=== PATIENT | male | born 1960 | race Hispanic/Latino ===

== ENCOUNTER 2020-05-07 19:02 | Emergency (ER) | payer OTHER ==
[2020-05-07 20:15] LABS: BASOPHILS % (AUTO) 0.3 % (0.0-5.0); EOSINOPHILS % (AUTO) 0.9 % (0.0-8.0); HEMATOCRIT 43.7 % (42-54); LYMPHOCYTES % (AUTO) 15.4 % (21.0-51.0); MEAN CORPUSCULAR HEMOGLOBIN 28.5 pg (27.0-33.0); MEAN CORPUSCULAR HGB CONC 33.9 g/dL (32.0-36.0); MEAN CORPUSCULAR VOLUME 84.2 fL (79-99); MONOCYTES % (AUTO) 7.3 % (3.0-13.0); NEUTROPHILS % (AUTO) 75.6 % (40.0-77.0); PLATELET COUNT (AUTO) 236 K/uL (130-400); RED BLOOD CELL COUNT(AUTO) 5.19 MIL/uL (4.50-6.20); RED CELL DISTRIBUTION WIDTH 12.9 % (11.0-15.5); WHITE BLOOD COUNT (AUTO) 8.8 K/uL (4.8-10.8)
[2020-05-07 20:22] LABS: PROTHROMBIN TIME 10.9 SEC (9.6-11.6)
[2020-05-07 20:23] LABS: PARTIAL THROMBOPLASTIN TIME 24.7 SEC (26.3-35.5)
[2020-05-07 20:25] LABS: ALBUMIN 4.2 g/dL (3.5-5.0); BILIRUBIN,TOTAL 0.3 mg/dL (0.2-1.0); TOTAL PROTEIN, SERUM 7.7 g/dL (6.0-8.3)
[2020-05-07 21:26] LABS: APPEARANCE,URINE Clear (CLEAR); BILIRUBIN,URINE Negative (NEGATIVE); COLOR,URINE Yellow (YELLOW); GLUCOSE, URINE (UA) Negative (NEGATIVE); KETONES,URINE Negative (NEGATIVE); LEUKOCYTE ESTERASE ,URINE Negative (NEGATIVE); NITRATE,URINE Negative (NEGATIVE); OCCULT BLOOD,URINE Negative (NEGATIVE); PH,URINE 5.5 (5.0-8.0); PROTEIN,URINE Negative (NEGATIVE); UROBILINOGEN,URINE 0.2 mg/dL (0.2-1.0)
== END 2020-05-07 22:25 | disposition home or self-care (01) ==
LOC: EDH 19:02
DX: R55 Syncope and collapse (principal); R42 Dizziness and giddiness; R03.0 Elevated blood-pressure reading, without diagnosis of hypertension; R26.9 Unspecified abnormalities of gait and mobility
CPT/HCPCS: 36415; 80053; 81003; 82550; 83605; 85025; 85610; 85730; 93005

== ENCOUNTER 2020-11-18 11:32 | Inpatient (IN) | payer OTHER ==
[~2020-11-18] VITALS: Ht 175.3 cm; Wt 99.5 kg
[2020-11-18] VITALS (7 sets, daily range): BP systolic 129–160; BP diastolic 76–95
[2020-11-18 12:35] LABS: HEMATOCRIT 44.1 % (42-54); MEAN CORPUSCULAR HEMOGLOBIN 28.3 pg (27.0-33.0); MEAN CORPUSCULAR HGB CONC 33.3 g/dL (32.0-36.0); RED BLOOD CELL COUNT(AUTO) 5.19 MIL/uL (4.50-6.20); RED CELL DISTRIBUTION WIDTH 12.8 % (11.0-15.5)
[2020-11-18 13:09] LABS: CREATININE 1.1 mg/dL (0.5-1.5); POTASSIUM 3.8 mmol/L (3.5-5.1)
[2020-11-18] MEDS ORDERED: ASPIRIN 325MG TAB PO ONE (13:30)
[2020-11-18] MEDS ORDERED: HEPARIN 5,000 UNIT VIAL IV ONE (13:30)
[2020-11-18] MEDS ORDERED: NITROGLYCERIN 1GM OINT 1 INCH/1GM TD ONE ×2 (13:30→14:55)
[2020-11-18] MEDS ORDERED: MORPHINE 4 MG SYG IV PRN (14:30)
[2020-11-18] MEDS ORDERED: ONDANSETRON 4MG INJ IV PRN (14:30)
[2020-11-18] MEDS ORDERED: MORPHINE 2 MG SYG IV PRN (14:30)
[2020-11-18] MEDS ORDERED: GUAIFENESIN-DM 200/20 MG 10 ML PO PRN (14:30)
[2020-11-18] MEDS ORDERED: DIPHENHYDRAMINE HCL 25 MG CAPSULE PO PRN (14:30)
[2020-11-18] MEDS ORDERED: MAG/ALUM/SIMETH 30 ML UDCUP PO PRN (14:30)
[2020-11-18] MEDS ORDERED: HYDRALAZINE 20MG/ML VIAL IV PRN (14:30)
[2020-11-18] MEDS ORDERED: ACETAMINOPHEN 325 MG TAB PO PRN (14:30)
[2020-11-18] MEDS ORDERED: LACTULOSE 20 GM/30 ML UDCUP PO PRN (14:30)
[2020-11-18] MEDS ORDERED: NITROGLYCERIN 0.4 MG SL TAB SL PRN (14:30)
[2020-11-18] MEDS ORDERED: HEPARIN 5,000 UNIT VIAL ONE (14:37)
[2020-11-18] MEDS: HEPARIN 25,000 UNITS/250ML D5W 250 ML IV PRN (14:50)
[2020-11-18] MEDS ORDERED: ASPIRIN 81MG CHEW TAB ONE (14:52)
[2020-11-18 16:08] LABS: CHOLESTEROL 185 mg/dL (<200); HDL CHOLESTEROL 28 mg/dL (29-71); LDL DIRECT 131 mg/dL (0-99); TRIGLYCERIDES 191 mg/dL (30-200)
[2020-11-18] MEDS ORDERED: CLOPIDOGREL 300MG TAB PO SCH ×3 (17:00→21:30)
[2020-11-18 17:20] LABS: AMPHET/METH SCREEN,URINE NEGATIVE (NEGATIVE); BARBITURATE SCREEN, URINE NEGATIVE (NEGATIVE); BENZODIAZEPINES SCREEN,URINE NEGATIVE (NEGATIVE); CANNABINOID SCREEN,URINE NEGATIVE (NEGATIVE); COCAINE SCREEN,URINE NEGATIVE (NEGATIVE); OPIATE SCREEN,URINE NEGATIVE (NEGATIVE); PHENCYCLIDINE SCREEN,URINE NEGATIVE (NEGATIVE)
[2020-11-18 19:24] LABS: HEMOGLOBIN A1C 5.9 % (4.0-6.0)
[2020-11-18 20:14] LABS: INR 1.04 (0.85-1.15); PROTHROMBIN TIME 11.3 SEC (9.6-11.6)
[2020-11-18 20:16] LABS: PARTIAL THROMBOPLASTIN TIME 44.8 SEC (26.3-35.5)
[2020-11-18] MEDS: FAMOTIDINE 20MG VIAL IV SCH ×2 (21:00→21:32)
[2020-11-18] MEDS ORDERED: METOPROLOL TARTRATE 25 MG TAB PO SCH (21:00)
[2020-11-18] MEDS: ATORVASTATIN 40 MG TABLET PO SCH (21:32)
[2020-11-19] VITALS (11 sets, daily range): BP systolic 64–153; BP diastolic 62–126
[2020-11-19 02:51] LABS: INR 1.04 (0.85-1.15); PROTHROMBIN TIME 11.3 SEC (9.6-11.6)
[2020-11-19 02:52] LABS: CHOLESTEROL 193 mg/dL (<200); CREATINE KINASE, TOTAL 171 U/L (21-232); HDL CHOLESTEROL 30 mg/dL (29-71); LDL DIRECT 133 mg/dL (0-99); MYOGLOBIN 44 ng/mL (10-92); TRIGLYCERIDES 198 mg/dL (30-200)
[2020-11-19 02:53] LABS: PARTIAL THROMBOPLASTIN TIME 51.5 SEC (26.3-35.5)
[2020-11-19] MEDS: HEPARIN 25,000 UNITS/250ML D5W 250 ML IV PRN (05:38)
[2020-11-19 07:40] LABS: BASOPHILS % (AUTO) 0.6 % (0.0-5.0); EOSINOPHILS % (AUTO) 1.7 % (0.0-8.0); HEMATOCRIT 45.3 % (42-54); LYMPHOCYTES % (AUTO) 25.5 % (21.0-51.0); MEAN CORPUSCULAR HGB CONC 33.1 g/dL (32.0-36.0); MEAN CORPUSCULAR VOLUME 84.5 fL (79-99); MONOCYTES % (AUTO) 8.7 % (3.0-13.0); NEUTROPHILS % (AUTO) 63.3 % (40.0-77.0); PLATELET COUNT (AUTO) 215 K/uL (130-400); RED BLOOD CELL COUNT(AUTO) 5.36 MIL/uL (4.50-6.20); RED CELL DISTRIBUTION WIDTH 12.8 % (11.0-15.5); WHITE BLOOD COUNT (AUTO) 6.4 K/uL (4.8-10.8)
[2020-11-19 07:57] LABS: CREATININE 0.9 mg/dL (0.5-1.5); POTASSIUM 3.8 mmol/L (3.5-5.1)
[2020-11-19] MEDS: CLOPIDOGREL 75MG TAB PO SCH (09:00)
[2020-11-19] MEDS: FAMOTIDINE 20MG VIAL IV SCH ×2 (09:00→21:47)
[2020-11-19] MEDS: METOPROLOL TARTRATE 25 MG TAB PO SCH ×2 (10:01→21:47)
[2020-11-19] MEDS ORDERED: HEPARIN 10,000 UNIT/10ML (1,000 UNIT/ML) VIAL ONE (12:05)
[2020-11-19] MEDS ORDERED: MIDAZOLAM HCL 1 MG/ML 2ML VIAL ONE (12:05)
[2020-11-19] MEDS ORDERED: IOHEXOL 350 MG/ML 100ML INFUS..BTL IV ONE (12:05)
[2020-11-19] MEDS ORDERED: NITROGLYCERIN 2 MG VIAL IV ONE (12:05)
[2020-11-19] MEDS ORDERED: FENTANYL CITRATE PF 50 MCG/1 ML 2ML VIAL ONE (12:06)
[2020-11-19] MEDS ORDERED: LIDOCAINE HCL 400MG/20ML VIAL ONE (12:06)
[2020-11-19] MEDS ORDERED: NICARDIPINE 25MG INJ IV ONE (12:28)
[2020-11-19] MEDS ORDERED: ASPIRIN 81MG CHEW TAB ONE (13:10)
[2020-11-19] MEDS ORDERED: IOHEXOL-350 50ML VIAL IV ONE (13:53)
[2020-11-19] MEDS ORDERED: IOHEXOL-350 75 ML VIAL IV ONE (13:53)
[2020-11-19] MEDS ORDERED: 0.9%NACL 1000ML 1,000 ML IV SCH (14:30)
[2020-11-19] MEDS: ATORVASTATIN 40 MG TABLET PO SCH (21:47)
[2020-11-20] VITALS: BP 125/66
[2020-11-20 03:52] VITALS: BP 119/74
[2020-11-20 06:35] LABS: BASOPHILS % (AUTO) 0.5 % (0.0-5.0); EOSINOPHILS % (AUTO) 1.4 % (0.0-8.0); HEMATOCRIT 43.7 % (42-54); LYMPHOCYTES % (AUTO) 22.5 % (21.0-51.0); MEAN CORPUSCULAR HGB CONC 33.2 g/dL (32.0-36.0); MEAN CORPUSCULAR VOLUME 84.5 fL (79-99); MONOCYTES % (AUTO) 9.6 % (3.0-13.0); NEUTROPHILS % (AUTO) 65.7 % (40.0-77.0); PLATELET COUNT (AUTO) 205 K/uL (130-400); RED BLOOD CELL COUNT(AUTO) 5.17 MIL/uL (4.50-6.20); RED CELL DISTRIBUTION WIDTH 12.8 % (11.0-15.5); WHITE BLOOD COUNT (AUTO) 7.7 K/uL (4.8-10.8)
[2020-11-20 07:50] VITALS: BP 121/73
[2020-11-20] MEDS ORDERED: METO25 PO (08:50)
[2020-11-20] MEDS ORDERED: CLOP75TA14 PO (08:50)
[2020-11-20] MEDS ORDERED: ASPI-1005 PO (08:50)
[2020-11-20] MEDS ORDERED: LOSA50TA64 PO (08:50)
[2020-11-20] MEDS ORDERED: ATOR40TA69 PO (08:50)
[2020-11-20] MEDS ORDERED: ASPIRIN 81MG CHEW TAB PO SCH (09:00)
[2020-11-20] MEDS ORDERED: LOSARTAN 50 MG TABLET PO SCH (09:00)
[2020-11-20] MEDS: FAMOTIDINE 20MG VIAL IV SCH (10:39)
[2020-11-20] MEDS: CLOPIDOGREL 75MG TAB PO SCH (10:40)
[2020-11-20] MEDS: METOPROLOL TARTRATE 25 MG TAB PO SCH (10:40)
[2020-11-20 11:10] VITALS: BP 133/80
== END 2020-11-20 14:18 | disposition home or self-care (01) | DRG 246 ==
LOC: EDH 11:32 → EDHIP 14:17 → 4CH 23:22
PROVIDERS: ADMIT Internal Medicine; ATTEND Internal Medicine
PROC: 027034Z Dilation of Coronary Artery, One Artery with Drug-eluting Intraluminal Device, Percutaneous Approach (ICD-10-PCS; principal; 2020-11-19)
PROC: 02703ZZ Dilation of Coronary Artery, One Artery, Percutaneous Approach (ICD-10-PCS; 2020-11-19)
PROC: 4A023N7 Measurement of Cardiac Sampling and Pressure, Left Heart, Percutaneous Approach (ICD-10-PCS; 2020-11-19)
PROC: B2111ZZ Fluoroscopy of Multiple Coronary Arteries using Low Osmolar Contrast (ICD-10-PCS; 2020-11-19)
DX: I21.4 Non-ST elevation (NSTEMI) myocardial infarction (principal); I50.31 Acute diastolic (congestive) heart failure; E66.9 Obesity, unspecified; Z68.32 Body mass index [BMI] 32.0-32.9, adult; Z82.3 Family history of stroke; E78.5 Hyperlipidemia, unspecified; I11.0 Hypertensive heart disease with heart failure
CPT/HCPCS: 36415; 71046; 80048; 80061; 80305; 82550; 83036; 83735; 83874; 84443; 84484; 85025; 85027; 85378; 85610; 85730; 92920; 93005; 93306; 93356; 93458; 99156; 99157; 99291; C1769; C1887; C9600; G0378; J1644; J2250; J3010; J3490; Q9967